=== PATIENT | female | born 2000 | race Hispanic/Latino ===

== ENCOUNTER 2025-06-26 16:45 | Day surgery (SDC) | payer OTHER, SELFPAY ==
[2025-06-26] MEDS ORDERED: hydrALAZINE 20 MG/ML VIAL SLOW IVP PRN (17:11)
[2025-06-26 17:40] VITALS: BMI 38.0
[2025-06-26 17:54] LABS: #Basophils 0.04 10x3/uL (0.0-0.2); #Eosinophils 0.14 10x3/uL (0.0-0.5); #Monocytes 0.85 10x3/uL (0.0-1.1); #Neutrophils 10.55 10x3/uL (1.5-8.4); %Basophils 0.3 % (0.0-2.0); %Eosinophils 1.0 % (0.0-6.0); %Lymphocytes 15.4 % (18.0-47.0); %Monocytes 6.2 % (0.0-10.0); %Neutrophils 76.4 % (40.0-75.0); Hematocrit 35.2 % (34.9-44.5); Hemoglobin 11.6 g/dL (12.0-15.5); Mean Corpuscular Hemoglobin 27.0 pg (27.0-33.0); Mean Corpuscular Volume 82.1 fL (81.6-98.3); Platelet Count 347 10x3/uL (150-450); Red Blood Cell (RBC) Count 4.29 10x6/uL (3.90-5.03); White Blood Cell (WBC) Count 13.80 10x3/uL (3.5-10.5)
[2025-06-26 18:04] LABS: ALT (SGPT) 327 U/L (Less than 34); AST (SGOT) 129 U/L (11-34); Albumin 2.9 g/dL (3.1-4.5); Alkaline Phosphatase 174 U/L (40-110); Anion Gap 14 mmol/L (10-20); BUN (Urea Nitrogen) 11 mg/dL (7.0-18.7); Bilirubin, Total 0.5 mg/dL (0.3-1.2); Calc. Creatinine Clearance 269 mL/min (70-130); Calcium 8.9 mg/dL (7.8-10.44); Carbon Dioxide 21 mmol/L (22-29); Chloride 103 mmol/L (98-107); Globulin 4.7 g/dL (2.4-3.5); Glucose 99 mg/dL (70-105); Potassium 3.6 mmol/L (3.5-5.1); Sodium 134 mmol/L (136-145)
[2025-06-26 18:17] LABS: INR-International Normal Ratio 0.9; PTT 26.3 sec (22.0-33.0); Prothrombin Time 10.1 sec (9.5-12.1)
[2025-06-26 18:36] LABS: Fibrinogen 836.0 mg/dL (220-504)
[2025-06-26 19:49] LABS: Uric Acid 4.7 mg/dL (2.5-6.2)
== END 2025-06-26 21:44 | disposition home or self-care (01) ==
LOC: CSHLD/OP 16:45
PROVIDERS: ATTEND Student in an Organized Health Care Education/Training Program
DX: O99.891 Other specified diseases and conditions complicating pregnancy (principal); R74.01 Elevation of levels of liver transaminase levels; Z3A.33 33 weeks gestation of pregnancy; Z67.40 Type O blood, Rh positive
CPT/HCPCS: 36415; 76705; 80053; 82140; 84550; 85025; 85384; 85610; 85730; 99285; J0702

== ENCOUNTER 2025-08-07 11:26 | Inpatient (IN) | payer MEDICAID, OTHER ==
[~2025-08-07 11:26] MED LIST: Acetaminophen 500 MG TAB PO PRN; Calcium Gluc 4.6 MEQ/10 ML (100 MG/ML) SLOW IVP PRN; Diphenoxylate HCl/Atropine Tablet PO PRN; Ibuprofen 800 MG TAB PO PRN; Lidocaine 1% (PF) 30 ML VIAL SC PRN; Methylergonovine 0.2 MG/ML VIAL IM PRN; Ondansetron PF 4 MG/2 ML Vial IVP PRN; Tranexamic Acid 1,000 MG/10 ML VIAL IVP PRN; hydrALAZINE 20 MG/ML VIAL SLOW IVP PRN
[2025-08-07] MEDS ORDERED: Oxytocin 30 units/NS 500 ML 500 ML IV SCH (11:30)
[2025-08-07 11:38] VITALS: BMI 39.4
[2025-08-07 12:20] LABS: Hematocrit 38.4 % (34.9-44.5); Hemoglobin 12.7 g/dL (12.0-15.5); Mean Corpuscular Hemoglobin 26.7 pg (27.0-33.0); Mean Corpuscular Volume 80.7 fL (81.6-98.3); Platelet Count 345 10x3/uL (150-450); Red Blood Cell (RBC) Count 4.76 10x6/uL (3.90-5.03); White Blood Cell (WBC) Count 13.82 10x3/uL (3.5-10.5)
[2025-08-07 12:27] LABS: Protein, Urine Random Quant 21.0 mg/dL (1-14)
[2025-08-07 12:41] LABS: ALT (SGPT) 65 U/L (Less than 34); AST (SGOT) 40 U/L (11-34); Albumin 2.9 g/dL (3.1-4.5); Alkaline Phosphatase 171 U/L (40-110); Anion Gap 16 mmol/L (10-20); BUN (Urea Nitrogen) 15 mg/dL (7.0-18.7); Bilirubin, Total 0.4 mg/dL (0.3-1.2); Calc. Creatinine Clearance 258 mL/min (70-130); Calcium 9.6 mg/dL (7.8-10.44); Carbon Dioxide 20 mmol/L (22-29); Chloride 105 mmol/L (98-107); Globulin 4.3 g/dL (2.4-3.5); Glucose 130 mg/dL (70-105); Potassium 4.3 mmol/L (3.5-5.1); Sodium 137 mmol/L (136-145)
[2025-08-07 12:59] LABS: Syphilis Antibody Index 0.06 S/CO (<1.00 Non-Reactive)
[2025-08-07 13:00] LABS: Hep B Surf Ag - L&D Non-Reactive S/CO (NonReactive)
[2025-08-07] MEDS: Penicillin G Potassium 5 MILL.UNITS in Sodium Chloride 0.9% 100 ML IVPB SCH ×2 (16:26→23:51)
[2025-08-07] MEDS: fentaNYL/Ropivacaine Epidural 100 ML ONE (20:43)
[2025-08-07] MEDS: Penicillin G 2.5 MILL.units 2.5 MILL.UNITS in Premix 1 BAG IVPB SCH ×2 (21:11→23:52)
[2025-08-07] MEDS ORDERED: Ondansetron PF 4 MG/2 ML Vial IVP PRN (21:31)
[2025-08-07] MEDS ORDERED: diphenhydrAMINE 50 MG/ML VIAL IVP PRN (21:31)
[2025-08-07] MEDS ORDERED: Communication Order-Pharmacy FS SCH (21:45)
[2025-08-07] MEDS ORDERED: fentaNYL 2 mcg/Ropivacaine 0.2% Epidural 100 ML CADD EPIDURAL SCH (21:45)
[2025-08-07] MEDS: Penicillin G Potassium 5 MILL.UNITS VIAL ONE (23:51)
[2025-08-08] MEDS: Oxytocin 30 units/NS 500 ML 500 ML IV SCH (01:46)
[2025-08-08] MEDS ORDERED: Bupivacaine HCl 0.5%/Epinephrine 1:200,000/PF 30 ml Vial ONE (07:00)
[2025-08-08] MEDS ORDERED: Bupivacaine 0.25% HCL 30 ML VIAL ONE (07:00)
[2025-08-08] MEDS: Carboprost 250 MCG/ML AMP IM PRN (10:55)
[2025-08-08] MEDS: Diphenoxylate HCl/Atropine Tablet PO PRN (11:43)
[2025-08-08] MEDS ORDERED: diphenhydrAMINE 25 MG CAP PO PRN (14:07)
[2025-08-08] MEDS ORDERED: Ondansetron PF 4 MG/2 ML Vial IVP PRN (14:07)
[2025-08-08] MEDS ORDERED: Methylergonovine 0.2 MG/ML VIAL IM PRN (14:07)
[2025-08-08] MEDS ORDERED: hydrALAZINE 20 MG/ML VIAL SLOW IVP PRN (14:07)
[2025-08-08] MEDS ORDERED: Lanolin Ointment 7 GM TUBE TOP PRN (14:07)
[2025-08-08] MEDS ORDERED: Milk Of Magnesia 30 ML UDCUP PO PRN (14:07)
[2025-08-08] MEDS ORDERED: Oxytocin 30 units/NS 500 ML 500 ML IV SCH (14:07)
[2025-08-08] MEDS ORDERED: Bisacodyl 10 MG SUPP PR PRN (14:07)
[2025-08-08] MEDS ORDERED: Preparation H Ointment 28 GM TUBE PR PRN (14:07)
[2025-08-08] MEDS: Ibuprofen 800 MG TAB PO SCH (14:29)
[2025-08-08] MEDS: Benzocaine-Menthol 82.5 ML CAN TOP PRN (14:30)
[2025-08-08] MEDS: Ferrous Sulfate 325 MG TAB PO SCH (16:54)
[2025-08-08] MEDS: Acetaminophen 325 MG TAB PO PRN (17:59)
[2025-08-10 07:42] VITALS: TEMP 98.8
[2025-08-10 07:45] VITALS: BP 125/71
== END 2025-08-10 13:58 | disposition home or self-care (01) | DRG 807 ==
LOC: CSHLD 11:26 → CSHPED 08-08 16:00
PROVIDERS: ADMIT Family Medicine; ATTEND Family Medicine
PROC: 3E03329 Introduction of Other Anti-infective into Peripheral Vein, Percutaneous Approach (ICD-10-PCS; 2025-08-07)
PROC: 4A1HXCZ Monitoring of Products of Conception, Cardiac Rate, External Approach (ICD-10-PCS; principal; 2025-08-08)
PROC: 10E0XZZ Delivery of Products of Conception, External Approach (ICD-10-PCS; 2025-08-08)
PROC: 10H07YZ Insertion of Other Device into Products of Conception, Via Natural or Artificial Opening (ICD-10-PCS; 2025-08-08)
DX: O99.824 Streptococcus B carrier state complicating childbirth (principal); Z37.0 Single live birth; O13.4 Gestational [pregnancy-induced] hypertension without significant proteinuria, complicating childbirth; O77.0 Labor and delivery complicated by meconium in amniotic fluid; Z3A.39 39 weeks gestation of pregnancy
CPT/HCPCS: 36415; 80053; 82570; 84156; 85027; 86780; 86850; 86900; 86901; 87340; J0665; J2540; J2590; J3490